=== PATIENT | female | born 1985 | race Two or more races ===

== ENCOUNTER 2016-12-02 12:14 | Emergency (ER) | payer SELFPAY ==
[~2016-12-02] VITALS: Ht 180.3 cm; Wt 86.2 kg
[2016-12-02 12:40] VITALS: BP 169/98
[2016-12-02] MEDS ORDERED: IBUPROFEN 800 MG TAB PO ONE (13:00)
== END 2016-12-02 13:50 | disposition home or self-care (01) ==
LOC: ER 12:14 → EDBD 12:14 → ER 13:50
DX: S16.1XXA Strain of muscle, fascia and tendon at neck level, initial encounter (principal); R51 Headache; Z88.2 Allergy status to sulfonamides; V43.52XA Car driver injured in collision with other type car in traffic accident, initial encounter; Y93.89 Activity, other specified; Y99.8 Other external cause status; Y92.89 Other specified places as the place of occurrence of the external cause
CPT/HCPCS: 70450; 72040